=== PATIENT | female | born 1980 | race African-American/Black ===

== ENCOUNTER 2022-04-23 20:28 | Observation (INO) | payer BC, SELFPAY ==
[2022-04-23 20:40] VITALS: BP 105/58; PULSE 60; RESP 20; TEMP 36.7
--- NOTE | 2022-04-23 21:00 | OBADM ---
This patient, Annette Quiroz, admitted to the OB room Labor/Delivery/Recovery 110 for observation. PT was sent from ED for IUFD. Pt states she came to ED because she wanted to change OB doctor. She has care with Dr. Merlin Blank in [facility]. She had cerclage placed on 04/10/22 and prescribed indometacin 4 tabs a day. She had follow up appointment with Dr. Blank and found out demise. She was supposed to go to [facility] for cerclage removal but she didn't safe with the hospital and doctor. She had c section X2 with previous . 1st c section was due to narrow pelvic ( per Pt statement ). 2nd c section was at [facility] with Dr. Moody. She was hoping that Dr. Moody will take her. She denies contractions, leaking fluid, vaginal bleeding. This RN explained Dr. Moody no long practice here and walk in doctor is Dr. Devries at [facility] [place]. Pt requests she will go home and try to find out Dr. Moody practice and maybe check out with Dr. Devries's office for transfer of care. Called Vincent Koo CNM and reported Pt history and request. Okay to discharge and ensure that she will find doctor and follow up and she is more than welcome to come [facility] [place].
--- NOTE | 2022-04-25 18:44 | PM.OBTRLD ---
OB - Triage/Final Diagnosis Visit Information Date of evaluation: 04/23/22 Reason for evaluation: other (IUFD, undelivered) Comments/Additional reasons for admission: I have assessed the risk for this patient, Annette Quiroz, and determined that she would benefit from observation care.
== END 2022-04-23 21:53 | disposition hospice, home (50) ==
PROVIDERS: Admitting Provider Obstetrics & Gynecology; Visit Provider Obstetrics & Gynecology
DX: O36.4XX0 Maternal care for intrauterine death, not applicable or unspecified (principal); Z3A.00 Weeks of gestation of pregnancy not specified
CPT/HCPCS: G0378; G0379

== ENCOUNTER 2022-05-01 20:07 | Inpatient (IN) | payer BC, SELFPAY ==
[2022-05-01] VITALS (8 sets, daily range): BP systolic 98–115; BP diastolic 45–70; PULSE 57–79; BMI 22.4
--- OUTSIDE RECORDS SUMMARY | 2022-05-01 20:16 | XMS_ITS | Encounter Summary ---
:1980 Author Reason for Visit cerclage removal Assessment and Plan Assessment Note cerclage removed induction tonight on L and D, discussed, questions answered, support given. precautions given 1. demise from miscarriage 2. Cervical cerclage suture present Discussion Note: None recorded.Patient educational handouts: No information available. Plan of Care Reminders Provider Appointments None recorded. ? ? Lab None recorded. ? ? Referral None recorded. ? ? Procedures None recorded. ? ? Surgeries None recorded. ? ? Imaging None recorded. ? ? Medications Name Start Date ? ? Multi-DHA (algal oil) 27 mg iron-800 mcg-250 mg capsule ? TAKE 1 CAPSULE BY MOUTH EVERY DAY Medications Administered None recorded. Vitals Height Weight BMI Blood Pressure 5 ft 1 in 119 lbs 22.5 kg/m2 117/75 mm[Hg] Results Lab Results None recorded. Allergies Code Code System Name Reaction Severity Onset NKDA ? ? ? Problems Name Status Onset Date Source ? Cervical Incompetence Active 04/25/2022 ? Cervical Cerclage Suture Present Active 04/25/2022 ? Multigravida of Advanced Maternal Age Active 04/25/2022 ? Demise from Miscarriage Active 04/25/2022 ? History of Section Active 04/25/2022 ? History of Loop Electrosurgical Excision Procedure Active 04/25/2022 ? Procedures Date Name Performed by ? 08/31/2015 Delivery Information not avai lable 06/04/2006 [place]
--- OUTSIDE RECORDS SUMMARY | 2022-05-01 20:16 | XMS_ITS | Encounter Summary ---
:1980 Author Reason for Visit None recorded. Assessment and Plan 1. , affecting management of mother ? US, obstetric, limited Discussion Note: None recorded.Patient educational handouts: No information available. Plan of Care Reminders Provider Appointments None recorded. ? ? Lab None recorded. ? ? Referral None recorded. ? ? Procedures None recorded. ? ? Surgeries None recorded. ? ? Imaging US, Obstetric, Limited 04/25/2022 [facility] [place] Medications Name Start Date ? ? Multi-DHA (algal oil) 27 mg iron-800 mcg-250 mg capsule ? TAKE 1 CAPSULE BY MOUTH EVERY DAY Medications Administered None recorded. Vitals None recorded. Results Lab Results None recorded. Allergies Code [...] 08/31/2015 Delivery Information not avai lable 06/04/2006 Delivery Information not avai lable 09/02/2004 Loop Electrosurgical Excision Procedure Information not available 04/25/2022 US, Obstetric, Limited [place] [address] [place] [address]
--- OUTSIDE RECORDS SUMMARY | 2022-05-01 20:16 | XMS_ITS ---
:1980 Author Care Team Providers Name Role Phone Damir Devries Victor Hugo Primary Care Provider Unavailable Allergies Code Code System Name Reaction Severity Status Onset NKDA ? Medications Name Status Start Date Stop Date ? ? Colace 100 mg capsule Completed ? 04/25/2022 TAKE ONE CAPSULE BY MOUTH TWICE DAILY NEEDED FOR CONSTIPATIO N ergocalciferol (vitamin D2) 1,250 mcg (50,000 unit) capsule Comp leted ? 04/25/2022 TAKE 1 CAPSULE BY MOUTH EVERY 7 DAYS indomethacin 25 mg capsule Completed ? 04/25 TAKE ONE CAPSULE BY MOUTH FOUR TIMES DAILY nitrofurantoin monohydrate/macrocrystals 100 mg capsule Complete d ? 04/25/2022 phenazopyridine 200 mg tablet Completed ? Multi-DHA (algal oil) 27 mg iron-800 mcg-250 mg capsule Active ? Not available TAKE 1 CAPSULE BY MOUTH EVERY DAY progesterone micronized 100 mg capsule Completed ? 04/25/2022 TAKE ONE CAPSULE BY MOUTH TWICE DAILY Problems Name Status Onset Date Source ? [...] Electrosurgical Excision Procedure Information not available 04/25/2022 , Obstetric, [facility] [address]
--- OUTSIDE RECORDS SUMMARY | 2022-05-01 20:16 | XMS_ITS | Encounter Summary ---
:1980 Author Reason for Visit f/u iufd Assessment and Plan Assessment Note discussed US results- confirmed IUFD discussed options of induction with cyto daljit after cerclage removal or D and E at [facility], would help facilitate getting her appt there. discussed RBA of each, she prefers induction here. she is aware of ris k of uterine rupture with cytotec, thoug h small at this gestational age. she would like future care here. they would like autopsy and labs to be d one, unsure if want labs today or at hospital tomorrow is her birthday, so do not want IOL yet. will schedule cerclage removal and IOL early next week precautions given discussed miscarriage causes, and those more likely with second trimester loss. also discussed that we may never find a cause even with a complete work up. They do desire to TTC again. Discussed c omgt with MFM in future . Discussed risks of AMA support given, questions answered. 1. demise from miscarriage ? anticardiolipin igg Ab, serum ? anticardiolipin igm Ab, serum ? lupus anticoagulant, plasma ? beta-2 glycoprotein 1 igm Ab, serum ? beta-2 glycoprotein 1 igg Ab, serum ? cytomegalovirus (cmv) igg+igm Ab, ser um ? toxoplasma igg+igm Ab, serum ? parvovirus B19 igg+igm Ab, serum ? hsv (1+2) Ab, serum ? SARS CoV 2 IgG + IgM Ab, QL IA, serum or plasma or blood ? TSH, serum or plasma ? HbA1c (hemoglobin A1c), blood 2. Cervical cerclage suture present 3. Cervical incompetence 4. History of section 5. Multigravida of advanced maternal ag e 6. History of loop electrosurgical exci adrianna procedure Discussion Note: None recorded.P
[2022-05-01] MEDS: miSOPROStol 200 MCG TABLET PO (22:15)
[2022-05-01 22:20] LABS: Basophils Percent Auto 0.3 % (0.2-1.2); Eosinophils Absolute Auto 0.2 K/mm3 (0-0.3); Eosinophils Percent Auto 1.9 % (0-4.4); Hematocrit 33.5 % (37.0-47.0); Hemoglobin 10.8 g/dL (12.0-15.0); Immature Granulocyte Absolute 0.06 K/mm3 (0.00-0.031); Immature Granulocyte Percent A 0.7 % (0-0.5); Lymphocytes Absolute Auto 3.23 K/mm3 (0.9-3.2); Lymphocytes Percent Auto 37.4 % (18.3-44.2); Mean Corpuscular HGB Conc 32.2 g/dl (32-36); Mean Corpuscular Hemoglobin 27.6 pg (26-34); Mean Corpuscular Volume 85.7 fl (80-100); Monocytes Absolute Auto 0.6 K/mm3 (0.1-0.6); Neutrophils Absolute Auto 4.6 K/mm3 (1.3-6.7); Neutrophils Percent Auto 52.7 % (45.5-73.1); Platelet Count Result 241 k/mm3 (150-375); Red Blood Count 3.91 M/mm3 (4.2-5.4); Red Cell Distribution Width 11.9 % (11.5-14.5); White Blood Count 8.6 K/mm3 (4.5-10.0)
--- NOTE | 2022-05-01 22:29 | LDADM ---
This patient, Annette Quiroz, was admitted to Labor/Delivery/Recovery 110 on 05/01/22 at 20:07. Plans for labor, pain management and were discussed with patient. Patient/family oriented to hospital policies and general routines including ID bracelet, bed and alarms, visiting hours, pain management, procedures, bathroom and other care routines, personal items, smoking policy, room service/diet and guest tray routines, infant security routines, and visiting hours. Patient/Family are encouraged to report perceived risks to care and to ask questions if they do not understand what they are told or what they should do. See OBIX for further documentation.
[2022-05-01 22:33] LABS: Amphetamine Screen Urine Negative (Negative); Barbiturate Screen Urine Negative (Negative); Benzodiazepines Screen Urine Negative (Negative); Cannabinoid Screen Urine Negative (Negative); Cocaine Screen Urine Negative (Negative); Methadone Screen Urine Negative (Negative); Opiate Screen Urine Negative (Negative); Phencyclidine Screen Urine Negative (Negative)
[2022-05-01] MEDS: fentaNYL CITRATE INJ (*CRX) 100 MCG/2 ML VIAL 50 MCG IV PUSH (23:11)
[2022-05-01 23:56] LABS: Hemoglobin A1C 4.2 % (<5.7)
[2022-05-02] VITALS (47 sets, daily range): BP systolic 94–128; BP diastolic 45–102; PULSE 55–87; TEMP 36.8
[2022-05-02 00:25] LABS: Free T4 Free Thyroxine 1.07 ng/mL (0.78-2.19)
[2022-05-02] MEDS: miSOPROStol 200 MCG TABLET PO (02:24)
[2022-05-02] MEDS: fentaNYL CITRATE INJ (*CRX) 100 MCG/2 ML VIAL 50 MCG IV PUSH (03:59)
[2022-05-02] MEDS: ONDANSETRON INJ 4 MG/2 ML VIAL IV PUSH ×2 (04:54→11:10)
[2022-05-02] MEDS: fentaNYL CITRATE INJ (*CRX) 100 MCG/2 ML VIAL IV PUSH ×2 (04:54→11:09)
[2022-05-02] MEDS: miSOPROStol 200 MCG TABLET 400 MCG PO (06:44)
--- NOTE | 2022-05-02 07:16 | PM.IMHP ---
H&P: HPI History of Present Illness Date/Time: 05/02/22 07:16 Chief Complaint: induction of labor, 15w IUFD Narrative: Kevin is a 42yo with 15w IUFD. She had care elsewhere. She has history of cervical incompetence with 21w loss, then two term pregnancies with cerclage in. This had cerclage placed at 12w, then at 15w no FHT found. She had trust issues with her doctor, and was set up with me through walk in call last week. Seen in office last week, established care, discussed plan, and had cerclage removed in office yesterday am. Presented last night to start induction. cytotec overnight. h/o two prior CS. also has fibroid. Review of Systems Review of Systems: All systems reviewed & are unremarkable except as noted in HPI and below PMFSH Family History Family History (Updated 05/01/22 @ 22:31 by Christine Benitez RN) Mother Asthma Cerebrovascular accident Diabetes mellitus Hypertension Father Diabetes mellitus Hypertension Social History Social History Smoking status: Never smoker Substance use: never Spiritual care concerns: Yes Meds Home Medications and Allergies Allergies Allergy/AdvReac Type Severity Reaction Status Date / Time No Known Allergies Allergy Verified 05/01/22 22:20 Vital Signs Vital Signs - 24 hr 05/01/22 22:25 05/01/22 22:17 05/01/22 22:31 Pulse Rate 68 70 Blood Pressure 104/62 102/45 L Oxygen Delivery Room Air 05/01/22 22:45 05/01/22 23:00 05/01/22 23:15 Pulse Rate 66 64 79 Blood Pressure 115/67 112/70 105/56 L Oxygen Delivery 05/01/22 23:30 05/01/22 23:45 05/02/22 00:00 Pulse Rate 61 57 L 55 L Blood Pressure 100/58 L 98/58 L 101/59 L Oxygen Delivery 05/02/22 00:15 05/02/22 00:30 05/02/22 00:45 Pulse Rate 58 L 63 73 Blood Pressure 110/61 104/63 111/58 L Oxygen Delivery 05/02/22 01:00 05/02/22 01:15 05/02/22 01:30 Pulse Rate 63 67 63 Blood Pressure 108/57 L 102/60 104/57 L Oxygen Delivery 05/02/22 01:47 05/02/22 02:00 05/02/22 02:15 Pulse Rate 83 64 66 Blood Pressure 107/59 L 105/55 L 107/53 L Oxygen Delivery 05/02/22 02:30 05/02/22 02:45 05/02/22 03:01 Pulse Rate 69 76 73 Blood Pressure 94/50 L 107/58 L 96/51 L Oxygen Delivery 05/02/22 03:15 05/02/22 03:30 05/02/22 03:45 Pulse Rate 68 71 76 Blood Pressure 122/74 107/56 L 111/67 Oxygen Delivery 05/02/22 06:48 05/02/22 07:01 05/02/22 07:15 Pulse Rate 69 71 68 Blood Pressure 107/61 115/62 111/59 L Oxygen Delivery 05/01/22 22:21 Pulse Rate 68 Blood Pressure 104/62 Oxygen Delivery Exam Const: General: no acute distress Resp: Effort & Inspection: normal respiratory effort Auscultation: clear to auscultation bilaterally Cardio: Rate: regular rate Rhythm: regular rhythm GI: GI Palp: Yes Soft to palpation Extrem: General: normal to inspection H&P: Results Labs Labs: Short CBC 05/01/22 Range/Units 21:58 WBC 8.6 (4.5-10.0) K/mm3 Hgb 10.8 L (12.0-15.0) g/dL Hct 33.5 L (37.0-47.0) % Plt Count 241 (150-375) k/mm3 Assessment and Plan Assessment and plan (1) demise before 20 weeks with retention of fetus: Code(s): O02.1 - Missed Status: Acute (2) AMA (advanced maternal age) multigravida 35+: Code(s): O09.529 - Supervision of elderly multigravida, unspecified trimester Status: Acute (3) Cervical insufficiency in , antepartum: Code(s): O34.30 - Maternal care for cervical incompetence, unspecified trimester Status: Acute Plan s/p cerclage removal cytotec induction pt desires full labs, autopsy, thrombophilia ny, torch panel
[2022-05-02 07:56] LABS: Rapid Plasma Reagin Non-Reactive (NonReactive)
[2022-05-02] MEDS: METHYLERGONOVINE MALEATE 0.2 MG/ML VIAL IM (11:16)
--- NOTE | 2022-05-02 11:20 | PM.OBPRVD ---
OB - Delivery Note Procedure Delivery date: 05/02/22 Procedure: of 15w IUFD Induction method: Per Misoprostol Protocol Delivery monitor: None Route of delivery: Specimen: Yes Quantitative Blood Loss (ml): 10 Anesthesia type: IV meds Disposition: Floor Narrative: At 1113 en caule delivery of 15w IUFD over intact perineum. Parents do not want to see the baby. Will collect tissue for chromosome analysis. Bleeding minimal. Methergine given. Support given. Baby Date of : 05/02/22 Time of : 11:13 Weeks of gestation at delivery: 15
--- NOTE | 2022-05-02 11:30 | PM.DS ---
DS: Admitting Diagnosis Discharge Date 05/02/22 Admitting Diagnosis IUFD 15w DS: Discharge Diagnosis Discharge Diagnosis (1) Complete : Code(s): O03.9 - Complete or unspecified spontaneous without complication Status: Acute DS: Summary Hospital Course Hospital Course: Kevin was admitted for induction of 15w IUFD. She had previously had her cerclage removed. She was induced with misoprostol and had an uncomplicated en caule delivery. She recovered well for a few hours, had minimal bleeding, and desired DC home the same day. Status at Discharge Functional status at discharge: independent ambulation Time Spent with Patient Time attestation: Total time spent providing and/or coordinating discharge services: Exam Narrative: NAD abdomen soft, appropriately tender Ext non tender, 1+ edema DS: Data Data Completed and Pending Labs on day of discharge: Labs from last 24 hours 05/01/22 05/01/22 05/01/22 21:58 21:58 21:58 WBC RBC Hgb Hct MCV MCH MCHC RDW Plt Count MPV Immature Gran % (Auto) Neut % (Auto) Lymph % (Auto) [place] % (Auto) Eos % (Auto) Baso % (Auto) Lymph # (Auto) [place] # (Auto) Eos # (Auto) Baso # (Auto) Abs Immat Gran (auto) Absolute Neuts (auto) Absolute Nucleated RBC Nucleated RBC % LA PTT Screen dRVVT Screen dRVVT Additional Test Lupus Anticoag Interp Hemoglobin A1c 4.2 TSH Free T4 Urine Opiates Screen Negative Urine Methadone Screen Negative Ur Barbiturates Screen Negative Ur Phencyclidine Scrn Negative Ur Amphetamine Screen Negative U Benzodiazepines Scrn Negative Urine Cocaine Screen Negative U Cannabinoids Screen Negative Beta-2-GPI IgG Ab Beta-2-GPI IgA Ab Beta-2-GPI IgM Ab Anti-Cardiolipin IgG Ab Anti-Cardiolipin IgA Ab Anti-Cardiolipin IgM Ab RPR CMV IgG Ab CMV IgM Ab HSV I Specific Ab HSV II Specific Ab HSV II IgM HIV 1&2 Ab/P24 Ag 4thGn Parvovirus B19 IgG Intp Parvovirus B19 IgM Intp Toxoplasma IgG Ab Toxoplasma IgM Ab Ref Lab Test Name Pending Ref Lab Test Result Pending Blood Type Antibody Screen 05/01/22 05/01/22 05/01/22 21:58 21:58 21:58 WBC RBC Hgb Hct MCV MCH MCHC RDW Plt Count MPV Immature Gran % (Auto) Neut % (Auto) Lymph % (Auto) [place] % (Auto) Eos % (Auto) Baso % (Auto) Lymph # (Auto) [place] # (Auto) Eos # (Auto) Baso # (Auto) Abs Immat Gran (auto) Absolute Neuts (auto) Absolute Nucleated RBC Nucleated RBC % LA PTT Screen dRVVT Screen dRVVT Additional Test Lupus Anticoag Interp Hemoglobin A1c TSH Free T4 Urine Opiates Screen Urine Methadone Screen Ur Barbiturates Screen Ur Phencyclidine Scrn Ur Amphetamine Screen U Benzodiazepines Scrn Urine Cocaine Screen U Cannabinoids Screen Beta-2-GPI IgG Ab Pending Beta-2-GPI IgA Ab Pending Beta-2-GPI IgM Ab Pending Anti-Cardiolipin IgG Ab Anti-Cardiolipin IgA Ab Anti-Cardiolipin IgM Ab RPR CMV IgG Ab CMV IgM Ab HSV I Specific Ab Pending HSV II Specific Ab Pending HSV II IgM Pending HIV 1&2 Ab/P24 Ag 4thGn Parvovirus B19 IgG Intp Pending Parvovirus B19 IgM Intp Pending Toxoplasma IgG Ab Toxoplasma IgM Ab Pending Ref Lab Test Name Ref Lab Test Result Blood Type Antibody Screen 05/01/22 05/01/22 05/01/22 21:58 21:58 21:58 WBC RBC Hgb Hct MCV MCH MCHC RDW Plt Count MPV Immature Gran % (Auto) Neut % (Auto) Lymph % (Auto) [place] % (Auto) Eos % (Auto) Baso % (Auto) Lymph # (Auto) [place] # (Auto) Eos # (Auto) Baso # (Auto) Abs Immat Gran (auto) Absolute Neuts (auto) Absolute Nucleated RBC Nucleated RBC % LA PTT Scre
--- NOTE | 2022-05-02 12:05 | PC.NURSE ---
Tying Machine Operator notified of demise. Body release obtained.
--- NOTE | 2022-05-02 12:14 | PC.NURSE ---
MTS notified of demise.
[2022-05-02] MEDS: IBUPROFEN 600 MG TABLET PO (13:44)
--- NOTE | 2022-05-02 14:07 | PC.NURSE ---
Pt has agreed to and been open to Share support. Spent time with pt and her this morning prior to the delivery of their baby. Talked about grief and early days of grief. Talked about various ways Share can support them in the days ahead. Pt given pt folder of information and mementos. She agreed for f/u next week by phone/e-mail.
[2022-05-03 13:43] LABS: HIV 1/2 Ab P24 Ag Result Negative (Negative)
[2022-05-05 20:19] LABS: CMV IgM Antibody <30.00 AU/mL (<30.00)
[2022-05-05 21:12] LABS: Anti Cardiolipin Antibody IgA <2.0 APL-U/mL (<20.0); Anti Cardiolipin Antibody IgG <2.0 GPL-U/mL (<20.0)
[2022-05-06 17:17] LABS: Toxoplasma IgG Antibody <7.20 IU/mL (<7.20)
[2022-05-06 17:18] LABS: Toxoplasma IgM Antibody <8.00 AU/mL (<8.00)
[2022-05-08 05:41] LABS: Lupus dRVVT 1:1 Mix Interpreta Not Indicated; Lupus dRVVT Screen 35 sec (<=45); PTT-LA Screen 33 sec (<=40)
[2022-05-10 12:05] LABS: HSV 1 IgM Screen Negative (Negative); HSV 2 IgM Screen Negative (Negative)
[2022-05-15 15:04] LABS: Reference Lab Test Result Positive
== END 2022-05-02 15:40 | disposition home or self-care (01) | DRG 770 ==
PROVIDERS: Admitting Provider Obstetrics & Gynecology; Visit Provider Obstetrics & Gynecology
DX: O02.1 Missed abortion (principal); O34.32 Maternal care for cervical incompetence, second trimester; Z3A.15 15 weeks gestation of pregnancy; O69.82X0 Labor and delivery complicated by other cord entanglement, without compression, not applicable or unspecified
CPT/HCPCS: 36415; 80307; 83036; 84439; 84443; 85025; 85613; 85730; 86146; 86147; 86592; 86644; 86645; 86695; 86696; 86703; 86747; 86769; 86777; 86850; 86900; 86901; 88300; A9270; G0432; J2210; J2405; J3010

== ENCOUNTER 2023-03-01 23:01 | Inpatient (IN) | payer BC, SELFPAY ==
[2023-03-01] VITALS (8 sets, daily range): BP systolic 127–147; BP diastolic 71–89; PULSE 66–82; BMI 27.8
[2023-03-01 19:50] LABS: Basophils Percent Auto 0.3 % (0.2-1.2); Eosinophils Percent Auto 0.1 % (0-4.4); Hematocrit 38.8 % (37.0-47.0); Hemoglobin 12.3 g/dL (12.0-15.0); Immature Granulocyte Absolute 0.07 K/mm3 (0.00-0.031); Immature Granulocyte Percent A 0.8 % (0-0.5); Immature Platelet Fraction Pct 21.6 % (0.9-11.2); Lymphocytes Percent Auto 24.2 % (18.3-44.2); Mean Corpuscular HGB Conc 31.7 g/dl (32-36); Mean Corpuscular Hemoglobin 28.6 pg (26-34); Mean Corpuscular Volume 90.2 fl (80-100); Monocytes Absolute Auto 0.6 K/mm3 (0.1-0.6); Monocytes Percent Auto 6.6 % (2.6-8.5); Neutrophils Absolute Auto 6.2 K/mm3 (1.3-6.7); Platelet Count Result 124 k/mm3 (150-375); Red Cell Distribution Width 13.6 % (11.5-14.5); White Blood Count 9.1 K/mm3 (4.5-10.0)
[2023-03-01 20:03] LABS: Alanine Aminotransferase 24 U/L (6-35); Albumin Level 3.9 g/dL (3.5-5.1); Alkaline Phosphatase 145 U/L (38-126); Anion Gap 8 mmol/L (8-16); Aspartate Amino Transferase 31 U/L (14-36); Bilirubin,Total 0.7 mg/dL (0.2-1.3); Blood Urea Nitrogen 14 mg/dL (7-17); Calcium 8.8 mg/dL (8.4-10.2); Carbon Dioxide 21 mmol/L (22-30); Chloride 105 mmol/L (98-107); Estimated Glomerular Filt Rate > 60; Glucose 60 mg/dL (65-110); Potassium 3.9 mmol/L (3.4-5.0); Sodium 134 mmol/L (137-145)
[2023-03-01 20:36] LABS: Creatinine Urine 287.1 mg/dL; Total Protein Urine Random 98 mg/dL; Ur Ttl Prot Creatinine Ratio 0.34 mg/mg (0-0.20)
[2023-03-01 20:42] LABS: Appearance Urine Cloudy (Clear); Bacteria Urine 2+ /hpf; Bilirubin Urine 1+ (Negative); Blood Urine Negative (Negative); Color Urine Dark Yellow (Yellow); Glucose Urine UA Negative (Negative); Ketones Urine 2+ mg/dL (Negative); Leukocyte Esterase Ur Negative LEU/UL (NEGATIVE); Need Manual Microscopic Reviewed; Nitrate Urine Negative (Negative); Protein Urine 3+ mg/dL (Negative); RBC Urine 0-2 /hpf (0-2); Squamous Epithelial Cell Urine Few /hpf (Few); pH Urine 5.5 (5.0-9.0)
[2023-03-01 20:44] LABS: Add Urine Microscopic? YES
[2023-03-02] VITALS (44 sets, daily range): BP systolic 119–156; BP diastolic 52–94; PULSE 54–109; RESP 13–18; TEMP 36.3–36.9; O2SAT 97–100
[2023-03-02] MEDS: LACTATED RINGERS 1,000 ML 125 ML IV CONT ×2 (05:00→06:50)
--- NOTE | 2023-03-02 05:36 | LDADM ---
This patient, Annette Quiroz, was admitted to OB Post 116 on 03/01/23 at 23:01. Plans for labor, pain management and were discussed with patient. Patient/family oriented to hospital policies and general routines including ID bracelet, bed and alarms, visiting hours, pain management, procedures, bathroom and other care routines, personal items, smoking policy, room service/diet and guest tray routines, security routines, and visiting hours. Patient/Family are encouraged to report perceived risks to care and to ask questions if they do not understand what they are told or what they should do. See OBIX for further documentation.
--- NOTE | 2023-03-02 06:27 | WPDANESEPP ---
Anes - Eval Pre Procedure Procedure: repeat c section Date/Time: 03/02/23 06:27 Surgeon: teresa Preop Diagnosis: previous c section Pre Op Diagnosis: Bebo Patient Data Age: 42 Gender: F Height: 1.55 m Weight: 67 kg Last Vital Signs Pulse 54 L 03/02/23 05:31 BP 140/68 03/02/23 05:31 Allergies Allergy/AdvReac Type Severity Reaction Status Date / Time No Known Allergies Allergy Verified 05/01/22 22:20 Home Medications Medication Instructions Recorded Confirmed Type ferrous sulfate 325 mg (65 mg 325 mg PO DAILY 02/22/23 02/22/23 History iron) tablet levothyroxine 75 mcg capsule 75 mcg PO DAILY 02/22/23 02/22/23 History 40-iron fum 27 mg 1 cap PO 02/22/23 History iron-folic acid 800 mcg-dha 250 mg capsule ( Multi-DHA (algal oil)) Laboratory Tests 03/01/23 03/02/23 19:42 00:18 WBC 9.1 K/mm3 (4.5-10.0) RBC 4.30 M/mm3 (4.2-5.4) Hgb 12.3 g/dL (12.0-15.0) Hct 38.8 % (37.0-47.0) MCV 90.2 fl (80-100) MCH 28.6 pg (26-34) MCHC 31.7 L g/dl (32-36) RDW 13.6 % (11.5-14.5) Plt Count 124 L k/mm3 (150-375) MPV 12.0 H fl (7.4-10.4) Immature Gran % (Auto) 0.8 H % (0-0.5) Neut % (Auto) 68.0 % (45.5-73.1) Lymph % (Auto) 24.2 % (18.3-44.2) [place] % (Auto) 6.6 % (2.6-8.5) Eos % (Auto) 0.1 % (0-4.4) Baso % (Auto) 0.3 % (0.2-1.2) Lymph # (Auto) 2.20 K/mm3 (0.9-3.2) [place] # (Auto) 0.6 K/mm3 (0.1-0.6) Eos # (Auto) 0.0 K/mm3 (0-0.3) Baso # (Auto) 0.0 K/mm3 (0.0-0.1) Abs Immat Gran (auto) 0.07 H K/mm3 (0.00-0.031) Absolute Neuts (auto) 6.2 K/mm3 (1.3-6.7) Absolute Nucleated RBC 0.0 K/mm3 (0.0-0.012) Nucleated RBC % 0.0 % (0.0-0.2) % Immature Plt Fraction 21.6 H % (0.9-11.2) Sodium 134 L mmol/L (137-145) Potassium 3.9 mmol/L (3.4-5.0) Chloride 105 mmol/L (98-107) Carbon Dioxide 21 L mmol/L (22-30) Anion Gap 8 mmol/L (8-16) BUN 14 mg/dL (7-17) Creatinine 0.60 L mg/dL (0.7-1.0) Estim Creat Clear Calc Not Reportable Estimated GFR > 60 (59 - ) Glucose 60 L mg/dL (65-110) Uric Acid 4.0 mg/dL (2.5-7.5) Calcium 8.8 mg/dL (8.4-10.2) Total Bilirubin 0.7 mg/dL (0.2-1.3) AST 31 U/L (14-36) ALT 24 U/L (6-35) Alkaline Phosphatase 145 H U/L (38-126) Total Protein 7.0 g/dL (6.3-8.2) Albumin 3.9 g/dL (3.5-5.1) Urine Color Dark yellow (Yellow) Urine Appearance Cloudy H (Clear) Urine pH 5.5 (5.0-9.0) Ur Specific [place] 1.030 (1.001-1.035) Urine Protein 3+ H mg/dL (Negative) Urine Glucose (UA) Negative mg/dL (Negative) Urine Ketones 2+ H mg/dL (Negative) Ur Blood (Man) Negative (Negative) Urine Nitrate Negative (Negative) Urine Bilirubin 1+ H (Negative) Urine Urobilinogen 1.0 mg/dL (<2.0) Ur Leukocyte Esterase Negative JIMMIE/UL (NEGATIVE) Add Ur Microanalysis Reviewed Urine RBC 0-2 /hpf (0-2) Urine WBC 11-20 H /hpf (0-3) Ur Squamous Epith Cells Few /hpf (Few) Urine Bacteria 2+ H /hpf Urine Casts 3-5 U Random Total Protein 98 mg/dL Urine Creatinine 287.1 mg/dL Protein/Creat Ratio 2 0.34 H mg/mg (0-0.20) RPR Pending Blood Type O Positive Antibody Screen Negative Patient hx anesthesia problems: none Family hx anesthesia problems: none Results Review: All pre-operative results and documents have been reviewed as part of the pre-operative evaluation. [facility] Past Medical History Medical History (Updated 03/02/23 @ 06:27 by Yuli Benoit CRNA) Hypothyroid IUP (intrauterine ), incidental
--- NOTE | 2023-03-02 06:31 | PM.IMHP ---
H&P: HPI History of Present Illness Date/Time: 03/02/23 06:31 Chief Complaint: R CS, preE Narrative: Kevin is a 42yo at 39.0 for third CS. She was scheduled for 39.2 after the weekend but was found to have 2+ proteinuria and mildly elevated BPs in the office yesterday. She presented to L and D late last night and had PC ratio of 0.34. BPs have remained mildly elevated or normal. She denies sx of PreE. 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 She has a cerclage in place currently, placed by [facility]. also complicated by AMA, subclinical hypothyroidism, fibroids, and weak D, for which she has refused Rhogam. GBS neg. Review of Systems Review of Systems: All systems reviewed & are unremarkable except as noted in HPI and below PMFSH Past Medical History Medical History (Updated 03/02/23 @ 06:37 by Noemi Henderson MD) Hypothyroid IUP (intrauterine ), incidental Family History Family History Mother Asthma Cerebrovascular accident Diabetes mellitus Hypertension Father Diabetes mellitus Hypertension Social History Social History Smoking status: Never smoker Second hand tobacco smoke exposure: No Substance use: never Lack of Transportation: No Lack of Food: Never True Current Housing: I Have Housing Concerned About Future Housing: No Difficulty Paying Gas/Electric Bills: No Difficulty Paying for Meds: No Currently Unemployed: No Education: Master's Degree or Higher Difficulty w/ Childcare or Family Care: No Spiritual care concerns: No Meds Home Medications and Allergies Home Medications Medication Instructions Recorded Confirmed Type ferrous sulfate 325 mg (65 mg 325 mg PO DAILY 02/22/23 02/22/23 History iron) tablet levothyroxine 75 mcg capsule 75 mcg PO DAILY 02/22/23 02/22/23 History 40-iron fum 27 mg 1 cap PO 02/22/23 History iron-folic acid 800 mcg-dha 250 mg capsule ( Multi-DHA (algal oil)) Allergies Allergy/AdvReac Type Severity Reaction Status Date / Time No Known Allergies Allergy Verified 05/01/22 22:20 Vital Signs Vital Signs - 24 hr 03/01/23 19:37 03/01/23 19:45 03/01/23 20:00 Pulse Rate 74 75 73 Blood Pressure 145/84 H 147/89 H 144/83 H 03/01/23 20:31 03/01/23 20:46 03/01/23 21:01 Pulse Rate 73 66 72 Blood Pressure 129/84 139/82 127/78 03/01/23 21:15 03/01/23 23:44 03/02/23 05:31 Pulse Rate 82 71 54 L Blood Pressure 133/85 128/71 140/68 Exam Const: General: no acute distress Resp: Effort & Inspection: normal respiratory effort Auscultation: clear to auscultation bilaterally Cardio: Rate: regular rate Rhythm: regular rhythm GI: GI Palp: Yes Soft to palpation Extrem: General: normal to inspection H&P: Results Labs Labs: Short CBC 03/01/23 Range/Units 19:42 WBC 9.1 (4.5-10.0) K/mm3 Hgb 12.3 (12.0-15.0) g/dL Hct 38.8 (37.0-47.0) % Plt Count 124 L (150-375) k/mm3 BMP 03/01/23 19:42 Sodium 134 L Potassium 3.9 Chloride 105 Carbon Dioxide 21 L BUN 14 Creatinine 0.60 L Glucose 60 L Calcium 8.8 Liver Function 03/01/23 Range/Units 19:42 Total Bilirubin 0.7 (0.2-1.3) mg/dL AST 31 (14-36) U/L ALT 24 (6-35) U/L Alkaline Phosphatase 145 H (38-126) U/L Albumin 3.9 (3.5-5.1) g/dL Urine 03/01/23 Range/Units 19:42 Urine Color Dark yellow (Yellow) Urine Appearance Cloudy H (Clear) Urine pH 5.5 (5.0-9.0) Ur Specific [place] 1.030 (1.001-1.035) Urine Protein 3+ H (Negative) mg/dL Urine Glucose (UA) Negative (Negative) mg/dL Assessment and Plan Assessment and plan (1) AMA (advanced maternal age) multigravida 35+: Code(s): O09.529 - Supervision of elderly multigravida, uns
--- NOTE | 2023-03-02 06:38 | WPDHPUPDATE1 ---
History and Physical Update Update Date/Time: 03/02/23 06:38 History and Physical has been reviewed, including an updated exam of the patient. There are NO changes in the patient's condition. Risks, benefits, and alternatives have been discussed and questions answered. Patient agrees to proceed with procedure.
[2023-03-02] MEDS: ceFAZolin 2 GM/D5W 50 ML 2 GM/50 ML BAG IVPB (07:35)
[2023-03-02] MEDS: KETOROLAC 30 MG/ML VIAL (*BKC) IV PUSH (08:59)
--- NOTE | 2023-03-02 09:18 | P.PCNOB_ITS ---
OB - Delivery Note Procedure Delivery date: 03/02/23 Procedure: Procedures Operation Date: 03/02/23 07:00 <No data on this case meets the specified criteria> cerclage removal and repeat section Events: Preeclampsia w/o severe features and Other (cerclage for history of cervical incompetence) Route of delivery: Specimen: Yes (placenta) Quantitative Blood Loss (ml): 695 Anesthesia type: Spinal Disposition: Floor Complications: none Narrative: Preop Dx: IUP 39.0, prior CS x2, mild PreE, cerclage for h/o cervical incompetence Post op Dx: same The patient was taken to the OR and received spinal anesthesia. She was placed in dorsal supine position with left lateral tilt. She was placed in stirrups and a sterile speculum was placed and the cervix was prepped with betadine x3. The cerclage suture was grasped with a ring forceps and one of the sutures was cut with scissors and the stitch removed in one piece. Light bleeding stopped with pressure. SCDs and andrews were placed. She was prepped and draped in the normal sterile fashion. A Pfannensteil skin incision was made and carried through to the underlying layer of fascia. The fascia was incised in the midline and then extended laterally using Vyas scissors. The muscles were in the midline and the peritoneum was entered bluntly. The peritoneal incision was extended inferiorly and superiorly with care to avoid the bladder. The bladder blade was then inserted, the vesicouterine peritoneum was grasped, incised with Metzenbaum scissors, and a bladder flap created. The bladder blade was reinserted. A low transverse uterine incision was made with a scalpel and extended bluntly. AROM was performed and fluid was noted to be clear. The head was delivered, followed by the remainder of the baby. The baby's oropharynx was suctioned. After 30 seconds, the cord was clamped and cut and the was handed off. A true knot was noted in the umbilical cord. Cord blood was obtained and the plac enta was then removed manually. The uterus was exteriorized. A moist lap sponge was used to curette the endometrium. The uterine incision was then closed with one layer of 0-Vicryl in a running, locking fashion with one additional figure of eight suture. Good hemostasis was noted. The posterior cul de sac was irrigated with normal saline and cleared of all clot and debris. The uterus was returned to the abdomen. Both lateral gutters were then irrigated. The rectus muscles were inspected and made hemostatic with bovie cautery. The fascia was reapproximated using 0- Vicryl in running fashion. The subcutaneous tissue was irrigated with normal saline and made hemostatic with Bovie electrocautery. The skin was then closed with absorbable vick. Steri strips and a bandage were applied. The uterus was evacuated. The patient tolerated the procedure very well. All counts were correct. She was taken to the recovery room in good condition. [place] Baby Date of : 03/02/23 Time of : 08:23 Weeks of gestation at delivery: 39 Infant gender: Male Weight (pounds): 7 Weight (ounces): 0 presentation: vertex Placenta delivery description: Manual Removal Cord Vessel Description: 3 Vessels, Nuchal Cord, True Knot and Delayed Cord Clamping score one minute: 8 score five minutes: 9
[2023-03-02] MEDS: OXYTOCIN 30 UNITS/NS 500 ML 30 UNITS/500 ML BAG 125 UNITS IV CONT (09:57)
[2023-03-02] MEDS: ONDANSETRON INJ 4 MG/2 ML VIAL IV PUSH ×2 (10:41→14:47)
--- NOTE | 2023-03-02 11:28 | OBPPTRN ---
Patient transferred to post room #284 via stretcher. Transferred to bed using the 3 B's and the maxi air. Support person and baby present. Oriented to unit, room, information board, rooming in, admission packet and security measures. Patient verbalizes understanding.
[2023-03-02] MEDS: miSOPROStol 200 MCG TABLET 800 MCG RECTAL (12:08)
--- NOTE | 2023-03-02 12:39 | PC.NURSE ---
1146--Dr. Henderson updated on pt. Order received for 800mcg Cytotec. 1210--Cytotec placed. Fundus 2 above and firm, scant trickle upon massage. VSS.
--- NOTE | 2023-03-02 13:00 | PC.NURSE ---
Breast pump provided due to mother's request. Instructions given on cleaning, care, usage, that there should be no pain, pumping schedule for milk production, collection, and storage of human milk. Parents are encouraged to record pumping schedule on the feeding sheet. Patient was assessed for correct placement, flange size, to pump for comfort and nipple stretching/stimulation for adequate milk production every 3 hours (8 times in 24 hours) 1-2 times at night. Mother voiced understanding of the education shared along with mom and baby guide for additional resource information.
[2023-03-02] MEDS: DEXTROSE 5%/0.45% SOD CHL 1,000 ML 125 ML IV CONT (14:47)
[2023-03-03 04:30] VITALS: BP 129/76; PULSE 61; RESP 18; TEMP 37.2; O2SAT 96
--- NOTE | 2023-03-03 04:50 | PM.OBPNVD ---
OB - PN: Subj Subjective Date/time seen: 03/03/23 04:50 Patient comments: no complaints and incisional pain [place] baby status: doing well and bottle feeding well [place] feeding status: exclusively bottle feeding Narrative: POD 1 from primary CS. Doing well. Normal lochia. Eating, ambulating, andrews in still. OB - PN: Obj Data Labs 03/01/23 19:42 03/01/23 19:42 OB - PN A/P Plan day: 1 Plan: routine care Comments: H/H pending still andrews out this am BPs since delivery 129-147/52-82. Declines circumcision Routine post op care. Time Spent With Patient Time: Total time spent is greater than 50% in coordination of care (as documented) at patient's floor/unit and/or counseling patient: Exam Narrative: NAD abdomen soft, appropriately tender, incision bandaged without strikethrough Extremities nontender with 1+ edema
[2023-03-03 06:17] LABS: Basophils Percent Auto 0.3 % (0.2-1.2); Eosinophils Percent Auto 0.4 % (0-4.4); Hematocrit 32.2 % (37.0-47.0); Immature Granulocyte Absolute 0.05 K/mm3 (0.00-0.031); Immature Granulocyte Percent A 0.5 % (0-0.5); Immature Platelet Fraction Pct 19.3 % (0.9-11.2); Lymphocytes Absolute Auto 1.32 K/mm3 (0.9-3.2); Lymphocytes Percent Auto 12.4 % (18.3-44.2); Mean Corpuscular HGB Conc 31.1 g/dl (32-36); Mean Corpuscular Hemoglobin 28.2 pg (26-34); Mean Platelet Volume 13.1 fl (7.4-10.4); Monocytes Absolute Auto 0.6 K/mm3 (0.1-0.6); Monocytes Percent Auto 5.8 % (2.6-8.5); Neutrophils Absolute Auto 8.6 K/mm3 (1.3-6.7); Neutrophils Percent Auto 80.6 % (45.5-73.1); Platelet Count Result 114 k/mm3 (150-375); Red Blood Count 3.54 M/mm3 (4.2-5.4); Red Cell Distribution Width 13.2 % (11.5-14.5); White Blood Count 10.7 K/mm3 (4.5-10.0)
[2023-03-03] MEDS: LEVOTHYROXINE SODIUM 50 MCG TABLET PO (06:55)
[2023-03-03] MEDS: MULTIVIT/MIN/PREN/FOL AC/IRON TABLET 1 TAB PO (06:58)
[2023-03-03] MEDS: IBUPROFEN 600 MG TABLET PO ×2 (06:59→14:23)
[2023-03-03] MEDS: HYDROcodone/acetaminophen (*CRX) 5-325 MG TABLET 1 TAB PO ×2 (06:59→14:24)
[2023-03-03] MEDS: DOCUSATE SODIUM 100 MG CAPSULE PO ×2 (06:59→14:24)
[2023-03-03 08:15] VITALS: BP 119/50; PULSE 66; RESP 18; TEMP 37.2; O2SAT 99
[2023-03-03 10:17] LABS: Rapid Plasma Reagin Non-Reactive (NonReactive)
--- NOTE | 2023-03-03 12:11 | WPDANLDPN2 ---
Anes-Prog Note L&D Date/Time: 03/03/23 12:11 Comfortable throughout: section Neuraxial method: spinal Epidural/Spinal procedure site: clean & non-tender Neuro status: Neuro function grossly intact. Cardiovascular status: normal Respiratory status: normal Airway patency: baseline Mental status: baseline Post-Op hydration status: normal Vital Signs: Last Vital Signs Temp 99.0 F 03/03/23 08:15 Pulse 66 03/03/23 08:15 Resp 18 03/03/23 08:15 BP 119/50 L 03/03/23 08:15 Pulse Ox 99 03/03/23 08:15 O2 Del Method Room Air 03/03/23 04:30 Pain score (VAS): 2 I/O: Intake & Output 03/02/23 03/03/23 03/03/23 23:59 07:59 15:59 Intake Total 1500 300 240 Output Total 150 1850 700 Balance 1350 -1550 -460 Post-procedural complaints: pruritis mild, no treatment Patient feedback: Patient satisfied with anesthetic care.
--- NOTE | 2023-03-03 12:11 | WPDANLDNPN2 ---
Anes-Prog Note L&D-Neuraxial Date/Time: 03/03/23 12:11 Neuraxial medications: intrathecal PF morphine Opiod-related complaints: pruritis mild, no treatment Patient feedback: Patient satisfied with post-operative pain management.
[2023-03-03 19:45] VITALS: BP 128/70; PULSE 79; RESP 16; TEMP 36.7; O2SAT 97
[2023-03-04] MEDS: IBUPROFEN 600 MG TABLET PO ×3 (00:22→17:10)
[2023-03-04] MEDS: SIMETHICONE 80 MG TAB.CHEW PO ×3 (00:22→17:10)
[2023-03-04] MEDS: HYDROcodone/acetaminophen (*CRX) 5-325 MG TABLET 1 TAB PO ×2 (00:23→06:30)
[2023-03-04] MEDS: MULTIVIT/MIN/PREN/FOL AC/IRON TABLET 1 TAB PO (06:30)
[2023-03-04] MEDS: LEVOTHYROXINE SODIUM 50 MCG TABLET PO (06:30)
[2023-03-04] MEDS: DOCUSATE SODIUM 100 MG CAPSULE PO ×2 (06:30→17:10)
--- NOTE | 2023-03-04 07:29 | P.PNOB_ITS ---
OB - PN: Subj Subjective Date/time seen: 03/04/23 07:29 Patient comments: no complaints, incisional pain and tolerating diet [place] baby status: doing well and bottle feeding well [place] feeding status: pumping and bottle feeding OB - PN: Obj Data Labs 03/03/23 05:15 03/01/23 19:42 Labs: Laboratory Results - last 24 hr 03/02/23 00:18 RPR Non-reactive OB - PN A/P Plan day: 2 Plan: routine care Comments: normotensive last 24 hours likely DC home tomorrow Time Spent With Patient Time: Total time spent is greater than 50% in coordination of care (as documented) at patient's floor/unit and/or counseling patient:
[2023-03-04 07:50] VITALS: BP 121/71; PULSE 82; RESP 16; TEMP 36.7; O2SAT 98
[2023-03-04] MEDS: ACETAMINOPHEN 325 MG TABLET 650 MG PO ×2 (11:15→21:12)
[2023-03-04 12:04] VITALS: BP 127/65; PULSE 80; RESP 18; TEMP 37; O2SAT 98
[2023-03-04 17:00] VITALS: BP 131/70; PULSE 77; RESP 14; TEMP 36.9; O2SAT 98
[2023-03-04 21:00] VITALS: BP 134/66; PULSE 74; RESP 18; TEMP 36.4
--- NOTE | 2023-03-04 21:15 | PC.NURSE ---
Patient instructed to view the discharge video Mother & Baby Care, The First Two Weeks online. Patient was given the opportunity and encouraged to ask questions. Patient verbalized understanding of information shared and has been given the mother/baby guide for home reference.
[2023-03-05 00:15] VITALS: BP 134/63; PULSE 69
[2023-03-05] MEDS: MULTIVIT/MIN/PREN/FOL AC/IRON TABLET 1 TAB PO (07:30)
[2023-03-05] MEDS: LEVOTHYROXINE SODIUM 50 MCG TABLET PO (07:30)
[2023-03-05] MEDS: SIMETHICONE 80 MG TAB.CHEW PO (07:30)
[2023-03-05] MEDS: DOCUSATE SODIUM 100 MG CAPSULE PO (07:30)
[2023-03-05] MEDS: HYDROcodone/acetaminophen (*CRX) 5-325 MG TABLET 1 TAB PO (07:31)
[2023-03-05] MEDS: IBUPROFEN 600 MG TABLET PO (07:31)
[2023-03-05 08:00] VITALS: BP 137/73; PULSE 66; RESP 16; TEMP 37.2; O2SAT 97
--- NOTE | 2023-03-05 10:47 | P.PNOB_ITS ---
OB - PN: Subj Subjective Date/time seen: 03/05/23 10:47 Patient comments: no complaints and incisional pain [place] baby status: doing well [place] feeding status: pumping and bottle feeding OB - PN: Obj Data Labs 03/03/23 05:15 03/01/23 19:42 OB - PN A/P Plan day: 3 Plan: routine care and discharge home Time Spent With Patient Time: Total time spent is greater than 50% in coordination of care (as documented) at patient's floor/unit and/or counseling patient: Exam Narrative: NAD abdomen soft, appropriately tender, incision CDI Extremities nontender with 1+ edema
--- NOTE | 2023-03-05 10:51 | P.DS_ITS ---
DS: Admitting Diagnosis Discharge Date 03/05/23 Admitting Diagnosis IUP 39w, PreEclampsia, prior CS x2 DS: Discharge Diagnosis Discharge Diagnosis (1) delivery delivered: Code(s): O82 - Encounter for delivery without indication Status: Acute (2) Preeclampsia: Code(s): O14.90 - Unspecified pre-eclampsia, unspecified trimester Status: Acute (3) Cervical insufficiency in , antepartum: Code(s): O34.30 - Maternal care for cervical incompetence, unspecified trimester Status: Acute OB - DS: Summary Hospital Course Hospital Course: Annette was admitted at 39w for R CS with mild PreEclampsia. She had a cerclage in place for history of cervical incompetence. I removed the cerclage prior to the delivery. Her course was uncomplicated, with BPs remaining mildly elevated or normal. She was discharge home in stable condition on POD 3. OB Procedures : Ultrasound OB Procedures Intrapartum: OB Procedures: : None Peripartum Data Delivery Method: Section Procedures: Procedures Operation Date: 03/02/23 07:00 Actual Procedure Side Surgeon p Section Bilateral Noemi Henderson MD and cerclage removal complications: none Status at Discharge Functional status at discharge: independent ambulation Time Spent with Patient Time attestation: Total time spent providing and/or coordinating discharge services: Exam Narrative: NAD abdomen soft, appropriately tender, incision CDI DS: Data Data Completed and Pending Pending studies at discharge: Pending at discharge 03/02/23 08:24 Surgical [PTH] Routine Discharge Plan Discharge Attending physician on discharge: Noemi Henderson Discharging Clinician: Noemi Henderson Anticipated Discharge Date/Time: 03/05/23 10:48 Patient Disposition: Home, Self-Care Activity: may shower, may drive after 2 weeks and pelvic rest Diet: regular Patient Instructions: Antibiotic Form Stand Alone Forms: General Discharge Information Follow-up/Referrals: Noemi Henderson MD [Physician] - 1 Week Discharge Medications: New hydrocodone-acetaminophen 5-325 mg Tablet 1 tablet PO Q4-5H PRN (Reason: Moderate Pain (4-6)) Qty: 30 0RF docusate sodium 100 mg Capsule 100 mg PO BID PRN (Reason: constipation) Qty: 60 0RF ibuprofen 600 mg Tablet 600 mg PO Q6H PRN (Reason: Cramping) Qty: 60 0RF Continued ferrous sulfate 325 mg (65 mg iron) Tablet 325 mg PO DAILY levothyroxine 75 mcg Capsule 75 mcg PO DAILY Multi-DHA (algal oil) 27mg iron- 800 mcg-250 mg capsule 1 cap PO Date of admission: 03/01/23 23:01 Primary Care Provider: PHYSICIAN,METAL ROOM DENTAL TECHNICIAN Admitting Provider: Noemi Henderson Attending physician on admission: Noemi Henderson Condition: Stable
[2023-03-07 09:46] VITALS: BP 133/84; PULSE 76; RESP 18; TEMP 36.7; O2SAT 99
== END 2023-03-05 12:48 | disposition home or self-care (01) | DRG 786 ==
LOC: ANHOBOP 23:04 → ANHOBPP 23:05 → ANHOB2 03-02 11:39
PROVIDERS: Admitting Provider Obstetrics & Gynecology; Visit Provider Obstetrics & Gynecology
PROC: 10D00Z1 Extraction of Products of Conception, Low, Open Approach (ICD-10-PCS; CPT 59514; principal; 2023-03-02 07:00)
DX: O14.04 Mild to moderate pre-eclampsia, complicating childbirth (principal); O34.33 Maternal care for cervical incompetence, third trimester; O34.211 Maternal care for low transverse scar from previous cesarean delivery; Z37.0 Single live birth; Z3A.39 39 weeks gestation of pregnancy; O69.81X0 Labor and delivery complicated by cord around neck, without compression, not applicable or unspecified; O99.284 Endocrine, nutritional and metabolic diseases complicating childbirth; E03.9 Hypothyroidism, unspecified; O99.73 Diseases of the skin and subcutaneous tissue complicating the puerperium; L29.9 Pruritus, unspecified
CPT/HCPCS: 36415; 80053; 81001; 82570; 84156; 84550; 85025; 85055; 86592; 86850; 86900; 86901; 87086; 88307; A9270; J0690; J1885; J2274; J2405; J2590; J7120